=== PATIENT | male | born 1980 | race African-American/Black ===

== ENCOUNTER 2021-02-28 09:45 | Emergency (ER) | payer MEDICAID ==
[~2021-02-28] VITALS: Ht 172.7 cm; Wt 75.0 kg
[2021-02-28] MEDS ORDERED: HYDROCODONE/ACETAMINOPHEN 5/325MG TABLET PO ONE (11:30)
[2021-02-28] MEDS ORDERED: AMOX-424 MT (11:52)
[2021-02-28] MEDS ORDERED: T3 PO (11:52)
[2021-02-28 12:25] VITALS: BP 116/84
== END 2021-02-28 12:25 | disposition home or self-care (01) ==
LOC: ER 09:55
DX: K04.7 Periapical abscess without sinus (principal); F17.210 Nicotine dependence, cigarettes, uncomplicated; Z87.81 Personal history of (healed) traumatic fracture; Z98.890 Other specified postprocedural states
CPT/HCPCS: 99283

== ENCOUNTER 2021-06-13 08:55 | Emergency (ER) | payer MEDICAID ==
[~2021-06-13] VITALS: Ht 182.9 cm; Wt 82.0 kg
[~2021-06-13 08:55] MED LIST: AMOX-424 MT; T3 PO
[2021-06-13 08:58] VITALS: BP 139/74
[2021-06-13] MEDS ORDERED: FAMOTIDINE 20MG/2ML VIAL IV STA (09:04)
[2021-06-13] MEDS ORDERED: METOCLOPRAMIDE HCL 10MG/2ML VIAL IV STA (09:04)
[2021-06-13] MEDS ORDERED: SODIUM CHLORIDE 0.9% 1,000 ML IV ONE (09:15)
[2021-06-13 10:14] LABS: BASOPHILS % 0.4 % (0.0-2.0); EOSINOPHILS % 0.9 % (0.0-5.0); HEMATOCRIT. 46.4 % (42.0-52.0); HEMOGLOBIN. 15.3 g/dL (14.0-18.0); LYMPHOCYTES % 22.9 % (20.0-50.0); MEAN CORPUSCULAR HEMOGLOBIN 29.5 pg (28.0-32.0); MEAN CORPUSCULAR VOLUME 89.6 fL (80.0-94.0); MEAN PLATELET VOLUME 9.1 fl (7.4-10.4); MONOCYTES % 11.5 % (2.0-8.0); NEUTROPHILS % 64.3 % (40.0-76.0); PLATELET 193 x1000/uL (130-400); RED BLOOD CELL COUNT 5.18 mill/uL (4.7-6.1); RED CELL DISTRIBUTION WIDTH 13.9 % (11.6-14.6)
[2021-06-13 10:16] LABS: CHLORIDE 107 mEq/L (98-107); CLARITY URINE CLEAR (CLEAR); COLOR URINE DK YELLOW (YELLOW); KETONES URINE 1+ (NEGATIVE); LEUKOCYTE ESTERASE URINE TRACE (NEGATIVE); NITRITE URINE NEGATIVE (NEGATIVE); OCCULT BLOOD URINE NEGATIVE (NEGATIVE); PROTEIN URINE 1+ (NEGATIVE); SPECIFIC GRAVITY URINE 1.036 (1.005-1.030)
[2021-06-13] MEDS ORDERED: IOHEXOL-300 100 ML BOTTLE ONE (11:48)
[2021-06-13] MEDS ORDERED: ONDA4TAB11 PO (12:33)
== END 2021-06-13 12:51 | disposition home or self-care (01) ==
LOC: ER 09:16
DX: K52.9 Noninfective gastroenteritis and colitis, unspecified (principal)
CPT/HCPCS: 36415; 74177; 80053; 81003; 83605; 83690; 85025; 93005; 96361; 96374; 96375; 99285; J2765; J3490; J7030; Q9967

== ENCOUNTER 2021-07-11 18:57 | Emergency (ER) | payer MEDICAID ==
[~2021-07-11] VITALS: Ht 185.4 cm; Wt 91.0 kg
[~2021-07-11 18:57] MED LIST changes: +ONDA4TAB11 PO
[2021-07-11] MEDS ORDERED: LIDOCAINE HCL/PF 1% 10 MG/ML 5ML VIAL INFIL ONE (20:15)
[2021-07-11] MEDS ORDERED: LIDOCAINE HCL/PF 1% 2ML VIAL INFIL NR (20:45)
[2021-07-11] MEDS ORDERED: CEPH500C2 PO (21:12)
[2021-07-11] MEDS ORDERED: TOPUD PO (21:12)
[2021-07-11] MEDS ORDERED: SULF1TAB48 PO (21:12)
[2021-07-11 22:55] VITALS: BP 130/66
== END 2021-07-11 22:56 | disposition home or self-care (01) ==
LOC: ER 18:57
DX: N49.2 Inflammatory disorders of scrotum (principal); Z98.890 Other specified postprocedural states
CPT/HCPCS: 99284; J3490